=== PATIENT | female | born 2005 | race Hispanic/Latino ===

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

== ENCOUNTER 2024-10-07 14:48 | Emergency (ER) | payer BC, MEDICAID ==
[~2024-10-07] VITALS: Ht 154.9 cm; Wt 68.0 kg
[~2024-10-07 14:48] MED LIST: ACET-66 PO; BROM118S48 PO; IBUP-2070 PO
--- NOTE | 2024-10-07 15:11 | ERN ---
ED Note History of Present Illness Stated Complaint: FLU SYM Chief Complaint: Flu Symptoms Time Seen by MD: 14:52 Dictation: 18-year-old female presents to the ED for evaluation of fever onset 2 days ago. Patient reports cough, sore throat, headache, SOB, and diarrhea but denies any other associated symptoms at this time. As per patient's son by her coworkers are positive for the flu. Allergies: Coded Allergies: No Known Drug Allergies (Unverified Allergy, Unknown, 09/27/21) Home Meds Active Scripts Azithromycin (Azithromycin) 250 Mg Tablet, 250 MG PO AD for cough for 5 Days, #6 TAB Prov:THAI MENDOSA MD 10/07/24 D-Methorphan Hb/P-Epd HCl/Bpm (Bromfed Dm Cough Syrup) 118 Ml Syrup, 5 ML PO TID for 5 Days, #80 ML Prov:DAVID MARTINEZ NP 09/27/21 Acetaminophen (Tylenol) 500 Mg Tab, 500 MG PO TID for 5 Days, #20 TAB Prov:DAVID MARTINEZ NP 09/27/21 Ibuprofen (Ibuprofen) 600 Mg Tablet, 600 MG PO TID PRN for PAIN for 5 Days, #15 TAB Prov:DAVID MARTINEZ NP 09/27/21 Past Medical History Past Medical History: No Pertinent History Surgical History: None Social History: Lives with family Review of System Dictation Constitutional: Positive for fever Negative for chills, and weight loss Eyes: Negative for injury, pain,redness, and discharge ENT: Positive for sore throat Cardiovascular: Negative for chest pain, palpitations, and edema Respiratory: Positive for cough and SOB Negative for wheezing, Abdomen/GI: Negative for abdominal pain, nausea, vomiting, diarrhea, and constipation Back: Negative for injury and pain : Negative for injury, bleeding and discharge MS/Extremity: Negative for injury and deformity Skin: Negative for rash, and discoloration Neuro: Positive for headache, negative for weakness, numbness, tingling, and seizure Psych: Negative for suicide ideation, homicidal ideation, and hallucinations Initial Vital Sign VS Vital Signs Date Time Temp Pulse Resp B/P (MAP) Pulse Ox O2 Delivery O2 Flow Rate FiO2 10/07/24 14:50 100.0 97 18 137/80 99 10/07/24 16:28 Room Air* 0 21 Physical Exam Dictation General: awake, alert, NAD Head/Face: Normocephalic, atraumatic Eyes: PERRL, EOMI, vision at baseline ENT: oral cavity clear, TMs clear, no signs of infection Neck: Trachea midline, supple, no nuchal rigidity Cardiovascular: RRR, normal S1/S2, No MRGs, no JVD Respiratory: CTAB, no respiratory distress, No rales or wheezes Abdomen: Soft, non-tender, non-distended, normal bowel sounds, no guarding or rebound. Skin: Warm, dry, normal turgor, no rash MS/Extremity: Pulses equal, no cyanosis, neurovascular intact, FROM Neuro: COAx4, GCS 15, strength 5/5, CN 2-12 intact, normal cerebellar exam, normal gait, Psych: Normal behavior, mood, and affect normal Results (Laboratory/Radiology) Laboratory/Radiology Laboratory Tests Test 10/07/24 15:31 Influenza Type A Antigen Negative For Type A Influenza Type B Antigen Negative For Type B SARS-CoV-2 Antigen (Rapid) PRESUMPTIVE NEGATIVE Labs Reviewed?: Yes ED Course ED Course Orders Procedure Category Date Status Time Covid19 (Sars Antigen LAB 10/07/24 Complete Rapid) 15:12 Influenza Type A & B, LAB 10/07/24 Complete Rapid 15:12 Vital Signs Date Time Temp Pulse Resp B/P (MAP) Pulse Ox O2 Delivery O2 Flow Rate FiO2 10/07/24 16:28 99.0 95 18 131/79 99 Room Air* 0 21 10/07/24 14:50 100.0 97 18 137/80 99 Medical Decision Making MDM MDM: Differential diagnosis: Fever, URI, viral syndrome Previous outside records reviewed: Old ER visits. Need for hospitalization: Patient does not meet criteria for hospitalization. Need for emergency major/minor surgery: No Patient's prior external medical records from other ER visits were reviewed by me as indicated. Prior testing and results from previous visits were reviewed. Prior tests were taken into account with medical decision making and resource utilization, independent historian/historians were used to obtain complete m edical history. I independently interpreted the test that were performed, results were reviewed by me and considered findings on radiology if ordered. Medical management and examination interpretation discussions were had by me with other qualified healthcare professionals as indicated for the patient's care. DX & DISP Disposition: Discharge Departure Impression: Primary Impression: Acute URI Condition: Stable Scripts Azithromycin (Azithromycin) 250 Mg Tablet 250 MG PO AD for cough for 5 Days, #6 TAB Prov: THAI MENDOSA MD 10/07/24 Referrals: SELF,REFERRAL (PCP) I have reviewed, & agreed with my scribe's, documentation. (Entered by Gena Reis, acting as a scribe for Dr. Mendosa) I personally scribed for THAI MENDOSA MD ([email or web address]) on 10/07/24 at 15:10. Electronically submitted by Gena Reis ([email or web address]). I personally scribed for THAI MENDOSA MD ([email or web address]) on 10/07/24 at 16:05. Electronically submitted by Gena Reis ([email or web address]). THAI MENDOSA MD Oct 07, 2024 15:10
[2024-10-07 15:55] LABS: COVID19 (SARS ANTIGEN RAPID) PRESUMPTIVE NEGATIVE (NEGATIVE)
[2024-10-07 15:56] LABS: INFLUENZA TYPE A Negative For Type A (NEGATIVE); INFLUENZA TYPE B Negative For Type B (NEGATIVE)
[2024-10-07 16:28] VITALS: BP 131/79; PULSE 95; RESP 18; TEMP 99; O2SAT 99
[2024-10-07] MEDS ORDERED: AZIT250T9 PO (16:33)
== END 2024-10-07 16:38 | disposition home or self-care (01) ==
LOC: EDH 14:48
DX: J06.9 Acute upper respiratory infection, unspecified (principal); Z20.822 Contact with and (suspected) exposure to COVID-19
CPT/HCPCS: 87426; 87804; 99283

== ENCOUNTER 2025-03-27 09:30 | Emergency (ER) | payer BC ==
[~2025-03-27] VITALS: Ht 154.9 cm; Wt 69.9 kg
[~2025-03-27 09:30] MED LIST changes: +AZIT250T9 PO
--- NOTE | 2025-03-27 09:30 | NUR ---
Note kenmargarita in EDM - 03/27/25 at 0959 by HERBERT PT STATES SHE NEEDS TO GO HOME TO CARE FOR HER MOTHER. DID NOT WANT TO WAIT FOR ALL HER RESULTS TO COME BACK .SHE ALSO STATES SHE HAS A PULLED MUSCLE ON THE LEFT SIDE SHE WAS DOING CHORES YESTERDAY. DR MACE MADE AWARE.
--- NOTE | 2025-03-27 09:53 | NUR ---
URINE WAS COLLECTED, LABELED AND SENT TO LAB
[2025-03-27 09:55] LABS: BASOPHILS # (AUTO) 0.04 K/uL (0.00-0.20); BASOPHILS % (AUTO) 0.4 % (0.0-5.0); EOSINOPHILS # (AUTO) 0.16 K/uL (0.00-0.70); EOSINOPHILS % (AUTO) 1.4 % (0.0-8.0); IMMATURE GRANULOCYTE ABSOLUTE 0.05 K/uL (0-1); LYMPHOCYTES # (AUTO) 2.4 K/uL (1.0-4.8); LYMPHOCYTES % (AUTO) 21.8 % (21.0-51.0); MEAN CORPUSCULAR HEMOGLOBIN 24.6 pg (27.0-33.0); MEAN CORPUSCULAR HGB CONC 31.4 g/dL (32.0-36.0); MEAN CORPUSCULAR VOLUME 78.4 fL (80-100); MONOCYTES # (AUTO) 0.8 K/uL (0.1-1.0); MONOCYTES % (AUTO) 6.7 % (3.0-13.0); NEUTROPHILS # (AUTO) 7.7 K/uL (1.8-7.7); NEUTROPHILS % (AUTO) 69.3 % (40.0-77.0); PLATELET COUNT (AUTO) 406 K/uL (130-400); RED BLOOD CELL COUNT(AUTO) 4.72 MIL/uL (4.00-5.50); RED CELL DISTRIBUTION WIDTH 16.4 % (11.0-15.5); WHITE BLOOD COUNT (AUTO) 11.1 K/uL (4.8-10.8)
[2025-03-27 10:00] LABS: APPEARANCE,URINE CLEAR (CLEAR); BILIRUBIN,URINE NEGATIVE (NEGATIVE); COLOR,URINE LIGHT-YELLOW (YELLOW); GLUCOSE, URINE (UA) NEGATIVE (NEGATIVE); KETONES,URINE NEGATIVE (NEGATIVE); LEUKOCYTE ESTERASE ,URINE 75 Leu/uL (NEGATIVE); NITRATE,URINE NEGATIVE (NEGATIVE); PROTEIN,URINE NEGATIVE (NEGATIVE); UROBILINOGEN,URINE 0.2 mg/dL (0.2-1.0)
[2025-03-27 10:05] LABS: CREATININE 0.7 mg/dL (0.5-1.0); POTASSIUM 3.6 mmol/L (3.5-5.1)
--- NOTE | 2025-03-27 10:14 | ERN ---
General Chief Complaint: Abdominal Pain Stated Complaint: RLQ PAIN Time Seen by MD: 09:32 Source: patient History of Present Illness Initial Comments Patient is a 19-year-old female coming in with right lower quadrant pain. Patient states that she was working earlier in the morning pain began and slowly increased in intensity. He says right now her pain is 10/10 on a right lower quadrant area. She also states that when she had and in his pain is increased Allergies: Coded Allergies: No Known Drug Allergies (Unverified Allergy, Unknown, 09/27/21) Home Meds Active Scripts Azithromycin (Azithromycin) 250 Mg Tablet, 250 MG PO AD for cough for 5 Days, #6 TAB Prov:THAI LEE MD 10/07/24 D-Methorphan Hb/P-Epd HCl/Bpm (Bromfed Dm Cough Syrup) 118 Ml Syrup, 5 ML PO TID for 5 Days, #80 ML Prov:DAVID MARTINEZ NP 09/27/21 Acetaminophen (Tylenol) 500 Mg Tab, 500 MG PO TID for 5 Days, #20 TAB Prov:DAVID MARTINEZ NP 09/27/21 Ibuprofen (Ibuprofen) 600 Mg Tablet, 600 MG PO TID PRN for PAIN for 5 Days, #15 TAB Prov:DAVID MARTINEZ NP 09/27/21 Past Medical History Past Medical History: No Pertinent History Medical History Other: denies pmhx Past Surgical History: None Surgical History Other: denies psx Social History Social History: Lives with family Female( History) LMP: March 06, 2025 ROS Dictation CONSTITUTIONAL: No chills, no fever, no weakness, no diaphoresis, no malaise. HEAD/FACE: No signs of trauma. EENT: No eye pain, no blurred vision, no tearing, no double vision, no ear pain, no ear discharge, no nose pain, no nasal congestion, no throat pain, no throat swelling, no mouth pain. RESPIRATORY: No cough, no orthopnea, no SOB, no stridor, no wheezing. CARDIOVASCULAR: No chest pain, no edema, no palpitations, no syncope. GASTROINTESTINAL/ABDOMINAL: abdominal pain, no constipation, no diarrhea, no nausea, no vomiting. GENITOURINARY: No abnormal discharge, no dysuria, no frequent urination, no hematuria. No complaints of pain in the genitals. MUSCULOSKELETAL: No back pain, no gout, no joint pain, no joint swelling, no muscle pain, no muscle stiffness, no neck pain. INTEGUMENTARY: No change in color, no change in hair/nails, no dryness, no lesion, no lumps, no rash. NEUROLOGICAL/PSYCH: No anxiety, not depressed, no emotional problem, no headache, no numbness, no pre-existing deficit, no history of seizures, no tremors, no weakness. HEMATOLOGIC/LYMPHATIC: Not anemic, no history of blood clots, no apparent bleeding, no bruising, glands not swollen. All Systems Negative, Except as Noted. Physical Exam Physical Exam Dictation VITAL SIGNS: Reviewed. GENERAL APPEARANCE: Alert, oriented x3, no acute distress, obese. HEAD AND FACE: Non-traumatic. EYES: PERRL, pink conjunctivas, eyelid no trauma, anterior chamber clear. EARS: Pinnas intact and no signs of trauma or erythema. Ear canals clear and no discharge. TMs no erythema. NOSE: No discharge, no bleeding. OROPHARYNX: Mouth normal, teeth no caries, tongue pink. Pharynx clear, no erythema. Tonsils no exudates, no abscesses noted. Mucous membrane moist. NECK: Supple, non-tender, no thyromegaly, no masses, no JVD, no bruits. BREAST: Deferred. CHEST: No tenderness, no crepitus, no paradoxical movement, no retractions. LUNGS: Clear, well-ventilated, symmetric, no rales, no wheezing, no rhonchi, no stridor, good breath sounds bilaterally. HEART: Regular rate, regular rhythm, no murmur, no gallops. VASCULAR: No peripheral edema. ABDOMEN: Soft, positive bowel sounds, nondistended, no guarding, right lower quadrant tender, no rebound, no masses no hepatomegaly, no splenomegaly, no Hunter's sign, no hernias. RECTAL: Deferred. GENITAL: Deferred. NEUROLOGICAL: Normal speech, gross motor function intact, gross sensory function intact. MUSCULOSKELETAL: Neck nontender, full range of motion, back nontender, full range of motion. EXTREMITIES: Nontender, full range of motion. SKIN: Color pink, dry, no turgor, no rash, no lacerations, no abrasions, no contusions. LYMPHATICS: Deferred. Results Laboratory and Microbiology Lab and Micro Result Laboratory Tests Test 03/27/25 09:45 03/27/25 09:46 White Blood Count 11.1 K/uL (4.8-10.8) H Red Blood Count 4.72 MIL/uL (4.00-5.50) Hemoglobin 11.6 g/dL (12.0-16.0) L Hematocrit 37.0 % (36-48) Mean Corpuscular Volume 78.4 fL (80-100) L Mean Corpuscular Hemoglobin 24.6 pg (27.0-33.0) L Mean Corpuscular Hemoglobin Concent 31.4 g/dL (32.0-36.0) L Red Cell Distribution Width 16.4 % (11.0-15.5) H Platelet Count 406 K/uL (130-400) H Mean Platelet Volume 9.8 fL (7.5-10.5) Immature Granulocyte % (Auto) 0.4 % (0-1) Neutrophils (%) (Auto) 69.3 % (40.0-77.0) Lymphocytes (%) (Auto) 21.8 % (21.0-51.0) Monocytes (%) (Auto) 6.7 % (3.0-13.0) Eosinophils (%) (Auto) 1.4 % (0.0-8.0) Basophils (%) (Auto) 0.4 % (0.0-5.0) Neutrophils # (Auto) 7.7 K/uL (1.8-7.7) Lymphocytes # (Auto) 2.4 K/uL (1.0-4.8) Monocytes # (Auto) 0.8 K/uL (0.1-1.0) Eosinophils # (Auto) 0.16 K/uL (0.00-0.70) Basophils # (Auto) 0.04 K/uL (0.00-0.20) Absolute Immature Granulocyte (auto 0.05 K/uL (0-1) Nucleated Red Blood Cells 0.0 % (0.0-0.19) Sodium Level 139 mmol/L (136-145) Potassium Level 3.6 mmol/L (3.5-5.1) Chloride Level 102 mmol/L (101-111) Carbon Dioxide Level 30 mmol/L (21-32) Blood Urea Nitrogen 12 mg/dL (7-18) Creatinine 0.7 mg/dL (0.5-1.0) Glomerular Filtration Rate Calc 127 mL/min (>90) Random Glucose 94 mg/dL (70-105) Total Calcium 9.1 mg/dL (8.5-10.1) Urine Color LIGHT-YELLOW (YELLOW) Urine Appearance CLEAR (CLEAR) Urine pH 6.0 (5.0-8.0) Urine Specific [place] 1.014 (1.001-1.031) Urine Protein NEGATIVE mg/dL (NEGATIVE) Urine Glucose (UA) NEGATIVE mg/dL (NEGATIVE) Urine Ketones NEGATIVE mg/dL (NEGATIVE) Urine Occult Blood +- (TRACE) (NEGATIVE) H Urine Nitrate NEGATIVE (NEGATIVE) Urine Bilirubin NEGATIVE mg/dL (NEGATIVE) Urine Urobilinogen 0.2 mg/dL (0.2-1.0) Urine Leukocyte Esterase 75 Kaylene/uL (NEGATIVE) H Urine RBC 6-10 /HPF (0-1) H Urine WBC 11-25 /HPF (0-1) H Urine Squamous Epithelial Cells RARE /HPF (0-2) Urine Bacteria RARE /HPF (None Seen) Urine HCG, Qualitative NEGATIVE (NEGATIVE) Labs Reviewed?: Yes EKG/XRAY/US/CT/MRI CT Scan Comment [address] [address] IMAGING REPORT Signed PATIENT: JENI ROME MR#: [id number] : 2005 SEX: F AGE: 19 LOCATION: ED ORDER [id number] STATUS: REG REPORT#: [id number] SERVICE 1012 REASON: rlq pain ORDERING PHYSICIAN: JAMILA MACE MD PROCEDURE: ABD PEL WO - CT ABDOMEN/PELVIS W/O CONTRAST CT ABDOMEN/PELVIS W/O CONTRAST HISTORY: Abdominal pain COMPARISON: None TECHNIQUE: Multiple sequential axial images of the abdomen and pelvis were obtained from the dome of the diaphragm through symphysis pubis. Patient was not given contrast through intravenous route. Oral contrast was not given. FINDINGS: No pleural effusion is seen bilaterally. There is no evidence of parenchymal disease or pulmonary nodule of the visualized lower lungs. Degenerative changes of the thoracolumbar spine are present. The heart is not enlarged. The liver, spleen, adrenal glands and pancreas are unremarkable. There is no evidence of hydronephrosis bilaterally. No evidence of renal stone is seen. Fecal material is seen in the colon. There are normal size retroperitoneal and mesenteric lymph nodes. No ascites is seen. No CT evidence of acute appendicitis is seen. Pelvic sidewalls are symmetric bilaterally. Bladder is well distended without wall thickening. IMPRESSION: 1. No acute findings. CT was performed with one or more following dose reduction techniques: automated exposure control, adjustment of the mA and kv according to patient's size, or use of a iterative reconstruction technique. DICTATED BY: MARTIR MANLEY MD DATE: 03/27/25 103 ELECTRONICALLY SIGNED BY: MARTIR MANLEY MD DATE: 03/27/25 103 [facility] MDM: Differential diagnosis: Appendicitis, UTI, constipation, Rationale: Tests considered and ordered secondary to shared decision making include: Previous outside records reviewed: Old ER visits. Risk of complication and/or morbidity or mortality of patient management: None Patient is a 19-year-old female coming in to be evaluated for lower abdominal discomfort. Laboratory workup disclose a urinary tract infection mild like the cell elevation CT was performed due to the location of the pain and the elevation white blood cell count. CT did not disclose acute appendicitis which was the reason has a performed. Patient will be discharged in stable condition with a diagnosis of urinary tract infection and constipation. ED Course Orders Procedure Category Date Status Time Cbc With Differential LAB 03/27/25 In Process 09:34 Basic Metabolic Panel LAB 03/27/25 Complete 09:34 ,Urine Test LAB 03/27/25 Complete 09:34 Urinalysis LAB 03/27/25 Complete W/Microscopic 09:51 Ct Abdomen/Pelvis W/O CT 03/27/25 Resulted Contrast 10:12 Culture Urine IVY 03/27/25 In Process 10:14 Vital Signs Date Time Temp Pulse Resp B/P (MAP) Pulse Ox O2 Delivery O2 Flow Rate FiO2 03/27/25 09:35 97.9 82 16 130/84 100 Room Air* 0 21 03/27/25 09:32 97.9 82 16 130/84 100 Room Air 0 DX & DISP Disposition: Discharge Departure Impression: Primary Impression: UTI (urinary tract infection) Additional Impression: Constipation Condition: Against Medical Advice Scripts Linaclotide (Linzess) 145 Mcg Capsule 1 CAP PO DAILY for 7 Days, #7 CAP 0 Refills Prov: JAMILA MACE MD 03/27/25 Cephalexin Monohydrate (Keflex) 500 Mg Cap 1 CAP PO BID for 10 Days, #20 CAP 0 Refills Prov: JAMILA MACE MD 03/27/25 Additional Instructions: FOLLOW-UP WITH PRIMARY CARE PROVIDER IN 1 TO 2 DAYS. TAKE MEDICATIONS DIRECTED HERE IN THE EMERGENCY ROOM. OKAY TO CONTINUE HOME MEDICATIONS UNLESS OTHERWISE DISCUSSED DURING YOUR VISIT IN THE EMERGENCY ROOM TODAY. RETURN TO YOUR NEAREST EMERGENCY ROOM IF SYMPTOMS WORSEN OR IF THERE IS NO IMPROVEMENT. CALL 911 IF YOU NEED IMMEDIATE ASSISTANCE. TAKE TYLENOL [id number] NEEDED AND IF NO CONTRAINDICATIONS ARE PRESENT. INCREASE ORAL HYDRATION. A WOUND CULTURE OR URINE CULTURE WAS ORDERED HERE IN THE EMERGENCY ROOM DEPARTMENT PLEASE FOLLOW-UP WITH PRIMARY CARE PROVIDER AND ADVISE THEM TO GET REPORTS FROM OUR FACILITY. IF YOU HAD ANY JEREMY WRAP/SPLINTS THAT WERE APPLIED HERE, PLEASE DO NOT REMOVE THEM UNTIL YOU SEE YOUR PRIMARY CARE OR SPECIALTY. Referrals: Referrals: Rocky ZAMBRANO MD (PCP) Time of Disposition: 10:47 JAMILA MACE MD Mar 27, 2025 10:14
[2025-03-27 10:31] LABS: BACTERIA,URINE RARE /HPF (None Seen); MUCUS,URINE RARE LPF (None Seen); SQUAMOUS EPITHELIAL CELL,UR RARE /HPF (0-2)
--- NOTE | 2025-03-27 10:35 | HMCIMG ---
CT ABDOMEN/PELVIS W/O CONTRAST HISTORY: Abdominal pain COMPARISON: None TECHNIQUE: Multiple sequential axial images of the abdomen and pelvis were obtained from the dome of the diaphragm through symphysis pubis. Patient was not given contrast through intravenous route. Oral contrast was not given. FINDINGS: No pleural effusion is seen bilaterally. There is no evidence of parenchymal disease or pulmonary nodule of the visualized lower lungs. Degenerative changes of the thoracolumbar spine are present. The heart is not enlarged. The liver, spleen, adrenal glands and pancreas are unremarkable. There is no evidence of hydronephrosis bilaterally. No evidence of renal stone is seen. Fecal material is seen in the colon. There are normal size retroperitoneal and mesenteric lymph nodes. No ascites is seen. No CT evidence of acute appendicitis is seen. Pelvic sidewalls are symmetric bilaterally. Bladder is well distended without wall thickening. IMPRESSION: 1. No acute findings. CT was performed with one or more following dose reduction techniques: automated exposure control, adjustment of the mA and kv according to patient's size, or use of a iterative reconstruction technique.
[2025-03-27] MEDS ORDERED: LINA145C PO (10:48)
[2025-03-27] MEDS ORDERED: CEPH500B PO (10:48)
[2025-03-27 11:06] VITALS: BP 122/66; PULSE 69; RESP 16; TEMP 97.9; O2SAT 100
--- NOTE | 2025-03-27 11:14 | NUR ---
DC PATIENT WAS DC'D BY DR Toño MACE TODAY I EXPLAINED TO PATIENT TO FOLLOW UP WITH PCP, TAKE NEW PRESCRIPTIONS DIRECTED, AND PROVIDED INFO BASED ON DIAGNOSIS I ANSWERED ANY FURTHER QUESTIONS FROM PATIENT PATIENT AMBULATED OUT OF ED, NO COMPLICATIONS
== END 2025-03-27 11:06 | disposition home or self-care (01) ==
LOC: EDH 09:30
DX: N39.0 Urinary tract infection, site not specified (principal); K59.00 Constipation, unspecified; Z79.899 Other long term (current) drug therapy
CPT/HCPCS: 36415; 74176; 80048; 81001; 81025; 85025; 87086; 87186; 99284